=== PATIENT | female | born 1935 | race Caucasian/White ===

== ENCOUNTER 2018-10-25 11:27 | Inpatient (IN) | payer OTHER, BC ==
[2018-10-25] MEDS ORDERED: VANCOMYCIN 1,000 MG in DEXTROSE 5%-WATER - 250 ML IVPB ONE (11:51)
[2018-10-25] MEDS ORDERED: VANCOMYCIN 1 GRAM (PRE-DOCKED) 1,000 MG/250 ML BAG IVPB ONE (12:45)
[2018-10-25 12:47] LABS: BASO % 1.4 % (0-2.0); EOS % 2.3 % (0-4.5); HEMATOCRIT 39.5 % (32.4-45.2); LYMPH % 12.6 % (8-40); MCH 28.6 pg (25.7-33.7); MEAN CELL VOLUME 86.8 fl (80-96); MEAN PLT VOLUME 9.3 fl (7.5-11.1); MONO % 6.7 % (3.8-10.2); PLATELET COUNT 238 K/MM3 (134-434); RBC 4.55 M/mm3 (3.60-5.2); RDW 14.7 % (11.6-15.6)
--- NOTE | 2018-10-25 13:10 | PDOC ---
Documentation entered by Vicki Palomino SCRIBE, acting as scribe for Kody Kaplan MD. Kody Kaplan MD: This documentation has been prepared by the scribe, Vicki Palomino SCRIBE, under my direction and personally reviewed by me in its entirety. I confirm that the documentation accurately reflects all work, treatment, procedures, and medical decision making performed by me. History of Present Illness - General Chief Complaint: Wound Stated Complaint: EDEMA Time Seen by Provider: 10/25/18 11:42 History Source: Patient Exam Limitations: No Limitations - History of Present Illness Initial Comments: 10/25/18 12:47 The patient is an 83-year-old female with a past medical history significant for HLD (on Lipitor) presents to the emergency department with bilateral foot wounds for the past 4 days. The patient reports she recently returned from [facility] 4 days ago. While in [facility], there was a 48 hour period where she wore the same shoes and socks. Afterwards, she developed a blister to the foot, which progressed into wounds to the pinky toe b/l, the R medial great toe, and the L heal. SHe reports the wounds developed about 1 week ago. While in [place], she developed fever and chills. The patient reports she was seen at the [place] ER, where she was prescribed Clindamycin. The patient reports improvement to fever and chills, with some decrease in swelling swelling but persistent redness. Denies significant pain to the wounds. Denies hx DM. The patient states she was seen at Dr. Reid office, from where she was referred to the ER for IV antibiotics. Denies fever, chills, leg pain, shortness of breath, or chest pain. Denies injury or trauma. As per Dr. Godfrey, he is concerned about failure of clindamycin and requests IV abx. Allergies: Penicillins PCP: Dr. Hanna. Past History - Past Medical History Allergies/Adverse Reactions: Allergies Allergy/AdvReac Type Severity Reaction Status Date / Time Penicillins Allergy Verified 10/25/18 11:30 Home Medications: Ambulatory Orders Atorvastatin Ca [Lipitor] 10 mg PO Q72H 10/25/18 Clindamycin [Cleocin -] 600 mg PO TID 10/25/18 COPD: No Hypercholesterolemia: Yes - Suicide/Smoking/Psychosocial Hx Smoking History: Former smoker Have you smoked in the past 12 months: No If you are a former smoker, when did you quit?: 20 yrs ago Information on smoking cessation initiated: No Review of Systems - Review of Systems Able to Perform ROS?: Yes Comments:: 10/25/18 12:40 GENERAL/CONSTITUTIONAL: No fever or chills. No weakness. HEAD, EYES, EARS, NOSE AND THROAT: No change in vision. No ear pain or discharge. No sore throat. GASTROINTESTINAL: No nausea, vomiting, diarrhea or constipation. GENITOURINARY: No dysuria, frequency, or change in urination. CARDIOVASCULAR: No chest pain or shortness of breath. RESPIRATORY: No cough, wheezing, or hemoptysis. MUSCULOSKELETAL: Denies leg pain. No joint or muscle swelling or pain. No neck or back pain. SKIN: +wound to the R and L. pinky toes. +left heel wound. +wound to the sole of the right great toe. No rash. NEUROLOGIC: No headache, vertigo, loss of consciousness, or change in strength/ sensation. ENDOCRINE: No increased thirst. No abnormal weight change. HEMATOLOGIC/LYMPHATIC: No anemia, easy bleeding, or history of blood clots. ALLERGIC/IMMUNOLOGIC: No hives or skin allergy. *Physical Exam - Vital Signs Last Vital Signs Temp Pulse Resp BP Pulse Ox 98 F 98 H 18 138/74 94 L 10/25/18 11:33 10/25/18 11:33 10/25/18 11:33 10/25/18 11:33 10/25/18 11:33 - Physical Exam Comments: 10/25/18 12:40 GENERAL: Awake, alert, and fully oriented, in no acute distress. Very pleasant. EYES: EOMI, sclera anicteric, conjunctiva clear ENT: Oropharynx clear without exudates. Moist mucosa LUNGS: Breath sounds equal, clear to auscultation bilaterally. No wheezes, and no crackles HEART: Regular rate and rhythm, normal S1 and S2, no murmurs, rubs or gallops ABDOMEN: Soft, nontender, normoactive bowel sounds. No guarding, no rebound. No masses EXTREMITIES: Normal range of motion, no edema. No cord or tenderness NEUROLOGICAL: Normal speech, cranial nerves intact, equals strength and sensation b/l SKIN: L heel with 3x4cm ulcer with surrounding erythema, L medial 5th toe with 2x1cm ulcer, R medial 1st toe 5x5cm ulcer with surrounding erythema, R medial 5th toe 2x1cm ulcer. Dorsum of the foot with erythema and mild induration extending to distal storey ED Treatment Course - LABORATORY CBC & Chemistry Diagram: 10/25/18 12:25 10/25/18 12:25 - ADDITIONAL ORDERS Additional order review: 10/25/18 12:25 RBC 4.55 MCV 86.8 MCHC 33.0 RDW 14.7 MPV 9.3 Neutrophils % 77.0 Lymphocytes % 12.6 Monocytes % 6.7 Eosinophils % 2.3 Basophils % 1.4 - RADIOLOGY Radiology Studies Ordered: Category Date Time Status CHEST X-RAY PORTABLE* [RAD] Stat Radiology 10/25/18 11:45 Completed FOOT-LEFT [RAD] Stat Radiology 10/25/18 12:13 Ordered FOOT-RIGHT [RAD] Stat Radiology 10/25/18 12:13 Ordered DUPLEX VASCUL US-2LEGS [US] Stat Ultrasound 10/25/18 12:13 Ordered - Medications Given in the ED: ED Medications Discontinued Medications Generic Name Dose Route Start Last Admin Trade Name Freq PRN Reason Stop Dose Admin Vancomycin HCl 1,000 mg/ 250 mls @ 250 mls/hr 10/25/18 11:51 10/25/18 12:53 Dextrose IVPB 10/25/18 12:50 250 mls/hr ONCE ONE Administration Protocol Medical Decision Making - Medical Decision Making 10/25/18 13:07 83yo F hx HL presents to the ED for IV abx after persistent erythema and wounds despite PO clindamycin Plan for labs, blood cx, XR, US to eval for DVT. Consult for ID placed, awaiting call back Anticipate admission 10/25/18 13:20 Dr. Ramirez at the bedside, case discussed WIll await her recs 10/25/18 13:[address] Ramirez, will add levoquin 500mg for antipseudomonal, gram neg cvg Pt has no hx cardiac disease or aortic pathology and has anaphylactic reaction to penicillins ("body swells up") so levaquin is most reasonable option Awaiting X-ray/US, then will admit 10/25/18 16:02 XRay neg for osteo on my read US neg DVT No leukocytosis Case signed out to Dr. Cee, pt accepted for admission Case discussed in detail with admitting physician including history, physical exam and ancillary studies. Admitting physician has assumed care for the patient, will follow all pending diagnostics and will complete the evaluation and treatment. *DC/Admit/Observation/Transfer Diagnosis at time of Disposition: Cellulitis Qualifiers: Site of cellulitis of extremity: lower extremity Laterality: right - Discharge Dispostion Condition at time of disposition: Stable Decision to Admit order Date/Time: Decision to Admit Order Category Date Time Status Decision to Admit to Hospital Routine Admission 10/25/18 12:12 Active - Referrals - Patient Instructions - Post Discharge Activity - Attestations Physician Attestion: 10/25/18 16:03 I, Dr. Kody Kaplan MD, attest that this document has been prepared under my direction and personally reviewed by me in its entirety. I further attest, that it accurately reflects all work, treatment, procedures and medical decision -making performed by me.
[2018-10-25 13:40] LABS: ALBUMIN 3.2 g/dl (3.4-5.0); BILIRUBIN,TOTAL 0.5 mg/dL (0.2-1); CALCIUM 9.3 mg/dL (8.5-10.1); CREATININE 0.7 mg/dL (0.55-1.3); POTASSIUM 5.1 mmol/L (3.5-5.1); TOT PROT 6.7 g/dl (6.4-8.2)
--- NOTE | 2018-10-25 14:22 | CON.ID ---
Consult Consult Specialty:: infectious disease Referred by:: dr mata Reason for Consultation:: cellulitis of right foot, ?abscess - History of Present Illness Chief Complaint: fuentes and swelling and erythema of the feet History of Present Illness: otherwise healthy 83 yo female went to [place] approximately 2 weeks ago with family to gaile- she wore sneakers and did a lot of walking the first several days she delivered blisters which she popped (2) with a clean sewing needle- she applied acitracin, more blisters appeared and the feet became red and swollen- her daughter moi she was running a fever and took her to the ER in [place] on Monday where she was prescribed clindamycin 600 mg bid which she took until today she cut her trip short and [place] she saw her PMD on Monday who referred her to podiatrytoday who sent her to ED for admissions no longer feverish feels fine except for the feet pen allergy - she blows up has not been hospitalized since the of her son over 50 years ago no recent antibiotics other then the clindamycin - History Source History Provided By: Patient Limitations to Obtaining History: No Limitations - Past Medical History Cardio/Vascular: Yes: Hyperlipdemia - Past Surgical History Additional Surgical History: ruptured ovarian cyst - Alcohol/Substance Use Hx Alcohol Use: No History of Substance Use: reports: None - Smoking History Smoking history: Former smoker Have you smoked in the past 12 months: No If you are a former smoker, when did you quit?: 20 yrs ago - Social History Usual Living Arrangement: Alone ADL: Independent Occupation: retired schoolteacher/ professor Place of : [facility] Home Medications - Allergies Allergies/Adverse Reactions: Allergies Allergy/AdvReac Type Severity Reaction Status Date / Time Penicillins Allergy Verified 10/25/18 11:30 - Home Medications Home Medications: Ambulatory Orders Atorvastatin Ca [Lipitor] 10 mg PO Q72H 10/25/18 Clindamycin [Cleocin -] 600 mg PO TID 10/25/18 Family Disease History - Family Disease History Family History: Denies Review of Systems - Review of Systems Constitutional: reports: No Symptoms. denies: Chills, Diaphoresis, Fever, Lethargy Eyes: reports: No Symptoms HENT: reports: No Symptoms Neck: reports: No Symptoms Cardiovascular: reports: No Symptoms Respiratory: reports: No Symptoms Gastrointestinal: reports: No Symptoms Genitourinary: reports: No Symptoms Physical Exam Vital Signs: Vital Signs Temperature 98 F 10/25/18 11:33 Pulse Rate 98 H 10/25/18 11:33 Respiratory Rate 18 10/25/18 11:33 Blood Pressure 138/74 10/25/18 11:33 O2 Sat by Pulse Oximetry (%) 94 L 10/25/18 11:33 Constitutional: Yes: Well Nourished, No Distress, Calm Eyes: Yes: Conjunctiva Clear, EOM Intact HENT: Yes: Atraumatic, Normocephalic. No: Thrush, Tonsillar Exudate Neck: Yes: Supple, Trachea Midline Cardiovascular: Yes: Regular Rate and Rhythm Respiratory: Yes: Regular, CTA Bilaterally Gastrointestinal: Yes: Normal Bowel Sounds, Soft ...Rectal Exam: Yes: Deferred Extremities: Yes: Other (right foot erythema with ulcer/?abscess below right big toe, +ulcer right 5th toe, left heel ulcer left fifth toe ulcer. no drainage , +white inside the blister right big tie- ?abscess) Edema: Yes Edema: LLE: Trace, RLE: Trace Peripheral Pulses WNL: Yes Neurological: Yes: Alert, Oriented Psychiatric: Yes: Alert, Oriented Labs: CBC, BMP 10/25/18 12:25 10/25/18 12:25 Imaging - Results X-ray: Report Reviewed, Image Reviewed (no infiltrate) Problem List - Problems (1) Cellulitis Code(s): L03.90 - CELLULITIS, UNSPECIFIED Qualifiers: Site of cellulitis of extremity: lower extremity Laterality: right (2) Penicillin allergy Code(s): Z88.0 - ALLERGY STATUS TO PENICILLIN Assessment/Plan no real response to clindamycin no drainage to culture severe pen allergy blood cultures sent vancomycin/levaquin podiatry to evaluate need for debridement esr/crp may need MRI will await xrays first
[2018-10-25] MEDS ORDERED: ACETAMINOPHEN 325 MG TABLET (FP) PO PRN (16:55)
--- NOTE | 2018-10-25 16:58 | HP ---
Admitting History and Physical - Primary Care Physician PCP: Vazquez Hanna - Admission Chief Complaint: my feet History of Present Illness: Ms Thompson is a very pleasant 83 year old female who comes in with cellulitis that failed outpatient therapy. She was vacationing in [place] and walked approximately 20 miles in 3 days. She noted that she developed blisters on both her feet. She popped the blisters with a needle from a sewing kit but continued to walk after this, and she also wore the same socks and shoes as well. Her feet became very red and swollen and she developed fevers and chills with shaking. She went to an ER in [facility] where she received clindamycin, however she decided to [place]. She has been taking the clindamycin but notes her feet are still beet red and swollen. She was seen by the structural iron erector and sent for admission. Currently she says she feels well aside from her feet hurting when she walks. She denies current fevers, chills, rigors, lightheadedness, dizziness, chest pain or pressure, shortness of breath , coughing, nausea, vomiting, anorexia, diarrhea, constipation, or difficulty or pain on urination. History Source: Patient Limitations to Obtaining History: No Limitations - Past Medical History Cardiovascular: Yes: Hyperlipdemia - Past Surgical History Past Surgical History: Yes: Oopherectomy - Smoking History Smoking history: Former smoker Have you smoked in the past 12 months: No If you are a former smoker, when did you quit?: 20 yrs ago - Alcohol/Substance Use Hx Alcohol Use: No History of Substance Use: reports: None - Social History ADL: Independent Occupation: retired schoolteacher/ professor History of Recent Travel: Yes ([facility]) Home Medications - Allergies Allergies/Adverse Reactions: Allergies Allergy/AdvReac Type Severity Reaction Status Date / Time Penicillins Allergy Verified 10/25/18 11:30 - Home Medications Home Medications: Ambulatory Orders Atorvastatin Ca [Lipitor] 10 mg PO Q72H 10/25/18 Clindamycin [Cleocin -] 600 mg PO TID 10/25/18 Family Disease History - Family Disease History Family Disease History: Other: Father (Parkinsons), Mother ( at age 103) Review of Systems Findings/Remarks: full review of systems obtained, as per HPI and otherwise negative Physical Examination Vital Signs: Vital Signs Temperature 36.6 C 10/25/18 11:33 Pulse Rate 98 H 10/25/18 11:33 Respiratory Rate 18 10/25/18 11:33 Blood Pressure 138/74 10/25/18 11:33 O2 Sat by Pulse Oximetry (%) 94 L 10/25/18 11:33 Constitutional: Yes: Well Nourished, No Distress, Calm Eyes: Yes: Conjunctiva Clear, EOM Intact, PERRL HENT: Yes: Atraumatic, Normocephalic Cardiovascular: Yes: Regular Rate and Rhythm. No: Gallop, Murmur, Rub Respiratory: Yes: Regular, CTA Bilaterally. No: Rales, Rhonchi, Wheezes Gastrointestinal: Yes: Normal Bowel Sounds, Soft. No: Distention, Tenderness Extremities: Yes: Erythema, Other (multiple blisters) Edema: Yes Edema: LLE: Trace, RLE: Trace Labs: CBC, BMP 10/25/18 12:25 10/25/18 12:25 Imaging - Results Chest X-ray: Report Reviewed, Image Reviewed X-ray: Image Reviewed Problem List - Problems (1) Cellulitis Assessment/Plan: -failed outpatient therapy -currently no signs of sepsis but needs IV antibiotics -admit to med/surg -podiatry consulted -case d/w Dr Ramirez -start levaquin and vancomycin -monitor for improvement -check ESR and CRP -awaiting final read for foot x-rays Code(s): L03.90 - CELLULITIS, UNSPECIFIED Qualifiers: Site of cellulitis of extremity: lower extremity Laterality: right (2) HLD (hyperlipidemia) Assessment/Plan: -continue atorvastatin 10mg three times a week Code(s): E78.5 - HYPERLIPIDEMIA, UNSPECIFIED
[2018-10-25 18:35] VITALS: BMI 25.8
[2018-10-25] MEDS: ATORVASTATIN CA 10 MG TABLET (FP) PO SCH (22:44)
[2018-10-26 07:35] LABS: BASO % 1.5 % (0-2.0); EOS % 3.5 % (0-4.5); HEMATOCRIT 37.5 % (32.4-45.2); HEMOGLOBIN 12.2 GM/dL (10.7-15.3); LYMPH % 16.8 % (8-40); MCH 28.3 pg (25.7-33.7); MCHC 32.6 g/dl (32.0-36.0); MEAN CELL VOLUME 86.8 fl (80-96); MEAN PLT VOLUME 8.6 fl (7.5-11.1); MONO % 7.1 % (3.8-10.2); NEUT % 71.1 % (42.8-82.8); PLATELET COUNT 236 K/MM3 (134-434); RBC 4.32 M/mm3 (3.60-5.2); RDW 14.4 % (11.6-15.6); WHITE BLOOD COUNT 6.2 K/mm3 (4.0-10.0)
[2018-10-26 07:46] LABS: CALCIUM 8.5 mg/dL (8.5-10.1); CREATININE 0.7 mg/dL (0.55-1.3); MAGNESIUM 2.5 mg/dL (1.8-2.4); PHOSPHOROUS 3.6 mg/dL (2.5-4.9); POTASSIUM 4.5 mmol/L (3.5-5.1)
[2018-10-26] MEDS: LACTOBACILLUS ACIDOPHILUS 1 TABLET PO SCH (09:51)
[2018-10-26] MEDS: ENOXAPARIN NA (PORCINE) 40 MG/0.4 ML DISP.SYRIN SQ SCH (09:51)
[2018-10-26 10:51] LABS: ANISOCYTOSIS 0; MACROCYTOSIS 0; PLATELET ESTIMATE NORMAL
[2018-10-26] MEDS: VANCOMYCIN 1 GRAM (PRE-DOCKED) 1,000 MG/250 ML BAG IVPB SCH (12:09)
--- NOTE | 2018-10-26 13:37 | CONSULT ---
Consult Consult Specialty:: Podiatry Reason for Consultation:: Patient has an infected right foot 1-2 weeks Started in [place]. - History of Present Illness Chief Complaint: Infected right foot. History of Present Illness: Infected right foot 1-2 weeks duration. - Past Medical History Cardio/Vascular: Yes: Hyperlipdemia - Past Surgical History Past Surgical History: Yes: Oopherectomy Additional Surgical History: ruptured ovarian cyst - Alcohol/Substance Use Hx Alcohol Use: No History of Substance Use: reports: None - Smoking History Smoking history: Former smoker Have you smoked in the past 12 months: No If you are a former smoker, when did you quit?: 20 yrs ago - Social History Usual Living Arrangement: Alone ADL: Independent Occupation: retired schoolteacher/ professor History of Recent Travel: Yes ([facility]) Home Medications - Allergies Allergies/Adverse Reactions: Allergies Allergy/AdvReac Type Severity Reaction Status Date / Time Penicillins Allergy Verified 10/25/18 11:30 - Home Medications Home Medications: Ambulatory Orders Atorvastatin Ca [Lipitor] 10 mg PO Q72H 10/25/18 Clindamycin [Cleocin -] 600 mg PO TID 10/25/18 Family Disease History - Family Disease History Family Disease History: Other: Father (Parkinsons), Mother ( at age 103) Physical Exam Vital Signs: Vital Signs Temperature 98.2 F 10/26/18 09:45 Pulse Rate 73 10/26/18 09:45 Respiratory Rate 18 10/26/18 09:45 Blood Pressure 125/70 10/26/18 09:45 O2 Sat by Pulse Oximetry (%) 96 10/25/18 21:00 Extremities: Yes: Other (+cellulitis, +wound big toe joint and 5th toe joint, - drainage, -mal odor) Labs: CBC, BMP 10/26/18 06:32 10/26/18 06:32 Imaging - Results X-ray: Report Reviewed Assessment/Plan cellulitis r/o om IVABX as per ID. Echeverria to wounds. Vascular consult. Will follow.
[2018-10-26] MEDS: COLLAGENASE CLOSTRIDIUM HIST. 30 GRAMS TUBE TP SCH (14:37)
--- NOTE | 2018-10-26 14:41 | PN ---
Progress Note (short form) - Note Progress Note: feet just dressed- she doesn't want me to remove it reports erythema about the same no drainage Vital Signs Period Temp Pulse Resp BP Sys/Field Pulse Ox Last 24 Hr 97.3 F-98.2 F 70-84 18-77 124-142/70-77 95-96 both feet are bandaged CBC, BMP 10/26/18 06:32 10/26/18 06:32 Laboratory Tests 10/25/18 10/25/18 20:30 20:30 ESR 38 H C-Reactive Protein 1.9 H Microbiology 10/25/18 12:25 Blood - Peripheral Venous Blood Culture - Preliminary NO GROWTH OBTAINED AFTER 24 HOURS, INCUBATION TO CONTINUE FOR 4 DAYS. 10/25/18 12:25 Blood - Peripheral Venous Blood Culture - Preliminary NO GROWTH OBTAINED AFTER 24 HOURS, INCUBATION TO CONTINUE FOR 4 DAYS. Active Medications Acetaminophen (Tylenol -) 650 mg PO Q4H PRN PRN Reason: FEVER Atorvastatin Calcium (Lipitor -) 10 mg PO Q72H BHARAT Last Admin: 10/25/18 22:44 Dose: Not Given Collagenase (Santyl -) 1 applic TP DAILY BHARAT; Protocol Last Admin: 10/26/18 14:37 Dose: 1 applic Enoxaparin Sodium (Lovenox -) 40 mg SQ DAILY BHARAT Last Admin: 10/26/18 09:51 Dose: 40 mg Vancomycin HCl (Vancomycin (Pre-Docked)) 1,000 mg in 250 mls @ 200 mls/hr IVPB Q24H BHARAT; Protocol Last Admin: 10/26/18 12:09 Dose: 200 mls/hr Levofloxacin (Levaquin 500 Mg Premixed Ivpb -) 500 mg in 100 mls @ 100 mls/hr IVPB DAILY BHARAT; Protocol Last Admin: 10/26/18 09:51 Dose: 100 mls/hr Lactobacillus Acidophilus (Bacid -) 1 tab PO DAILY BHARAT Last Admin: 10/26/18 09:51 Dose: 1 tab a/p bilateral cellulitis pen allergy (major) continue vancomycin and levaquin will examine feet in am MRI ordered Problem List - Problems (1) Cellulitis Code(s): L03.90 - CELLULITIS, UNSPECIFIED Qualifiers: Site of cellulitis of extremity: lower extremity Laterality: right (2) Penicillin allergy Code(s): Z88.0 - ALLERGY STATUS TO PENICILLIN
--- NOTE | 2018-10-26 17:22 | CONSULT ---
- Consultation REQUESTING PROVIDER: CONSULT REQUEST: We have been asked to surgically evaluate this patient for (b/ l foot cellulitis/wounds). PCP:Sylvester Cee MD HISTORY OF PRESENT ILLNESS: 83 y/o F w/ PMHx hld a/w foot cellulitis. Pt reports she was vacationing in [place] a week ago and walked approximately 20 miles in 3 days wearing Sketchers. States after the third day she noted a blister on her foot which she popped with her sewing needle and applied Bacitracin. The following day the pt noted multiple blisters on b/l feet in addition to redness/swelling and pain. Endorses chills/fevers. Pt was seen at an ER in [place] on 10/21 where she was given a prescription for Clindamycin 300mg TID and discharged. Pt reports vacation was cut short and they returned on Monday evening. Was seen by her PCP on Monday and urged to go to the ER. Pt refused, PCP allowed 24 hours to assess for any change. Feet remained unchanged in addition to persistent chills and pt was sent to the hospital for further evaluation. Denies any prior h/o cellulitis, DM, foot trauma, DVT/PE. Pt reports she was a heavy smoker (3ppd) for many years, however quit approx 20 years ago. Has never had evaluation/intervention w/ vascular surgery. At baseline pt ambulates unlimited miles without assistance, denies any h/o claudication. Denies cp/sob, n/v/d, calf pain/edema. PMHx: as above PSHx: oophorectomy Home Medications Medication Instructions Recorded Atorvastatin Ca [Lipitor] 10 mg PO Q72H 10/25/18 Clindamycin [Cleocin -] 600 mg PO TID 10/25/18 Allergies Allergy/AdvReac Type Severity Reaction Status Date / Time Penicillins Allergy Verified 10/25/18 11:30 REVIEW OF SYSTEMS: CONSTITUTIONAL: +subjective fever, chills CARDIOVASCULAR: Absent: chest pain, syncope RESPIRATORY: Absent: cough, shortness of breath GASTROINTESTINAL: Absent: abdominal pain GENITOURINARY: Absent: dysuria PHYSICAL EXAM: GENERAL: Awake, alert, and fully oriented, in no acute distress. HEAD: Normal with no signs of trauma. LOWER EXTREMITIES: B/l feet with multiple dried blisters: Left foot with dried blister at medial aspect of 5th toe, heel with approx 2x2cm area of denuded/ dried blister. No erythema or drainage from either denuded blisters. Forefoot with slight hyperemia/trace edema. Right foot with approx 3x3cm denuded/dried blister over 1st met head, small denuded/dried blister over 5th toe. Right foot with 1+ pitting edema to ankle, erythema over forefoot extending from met heads to proximal foot. Vasc: 2+ b/l dp, 1+ b/l pt Vital Signs Temperature 98.5 F 10/26/18 14:47 Pulse Rate 83 10/26/18 14:47 Respiratory Rate 18 10/26/18 14:47 Blood Pressure 148/86 10/26/18 14:47 O2 Sat by Pulse Oximetry (%) 96 10/25/18 21:00 Lab Results WBC 6.2 K/mm3 (4.0-10.0) 10/26/18 06:32 RBC 4.32 M/mm3 (3.60-5.2) 10/26/18 06:32 Hgb 12.2 GM/dL (10.7-15.3) 10/26/18 06:32 Hct 37.5 % (32.4-45.2) 10/26/18 06:32 MCV 86.8 fl (80-96) 10/26/18 06:32 MCHC 32.6 g/dl (32.0-36.0) 10/26/18 06:32 RDW 14.4 % (11.6-15.6) 10/26/18 06:32 Plt Count 236 K/MM3 (134-434) 10/26/18 06:32 Sodium 143 mmol/L (136-145) 10/26/18 06:32 Potassium 4.5 mmol/L (3.5-5.1) 10/26/18 06:32 Chloride 110 mmol/L (98-107) H 10/26/18 06:32 Carbon Dioxide 25 mmol/L (21-32) 10/26/18 06:32 Anion Gap 7 MMOL/L (8-16) L 10/26/18 06:32 BUN 14 mg/dL (7-18) 10/26/18 06:32 Creatinine 0.7 mg/dL (0.55-1.3) 10/26/18 06:32 Random Glucose 104 mg/dL (74-106) 10/26/18 06:32 Calcium 8.5 mg/dL (8.5-10.1) 10/26/18 06:32 A/P: 83 y/o F w/ PMHx hld a/w foot cellulitis. Pt with right foot cellulitis, multiple denuded/dried blisters over b/l feet. no purulent drainage from any of the areas noted. Afebrile, no leukocytosis. Prelim blood cultures negative. Palpable pedal pulses -No acute vascular surgery intervention at this time. -Local wound care with betadine solution to denuded blisters -Abx per primary team -B/L foot elevation while at rest -D/w pt at length foot care, avoidance of walking barefoot,checking feet daily for any injuries, etc. Pt verbalized understanding above d/w attending Dr Correa
--- NOTE | 2018-10-26 17:30 | PN ---
Progress Note, Physician Chief Complaint: Ms Thompson says she is feeling better today, it is easier to walk. Denies cp, sob, n/v. - Current Medication List Current Medications: Active Medications Acetaminophen (Tylenol -) 650 mg PO Q4H PRN PRN Reason: FEVER Atorvastatin Calcium (Lipitor -) 10 mg PO Q72H [facility] Last Admin: 10/25/18 22:44 Dose: Not Given Collagenase (Santyl -) 1 applic TP DAILY [facility]; Protocol Last Admin: 10/26/18 14:37 Dose: 1 applic Enoxaparin Sodium (Lovenox -) 40 mg SQ DAILY [facility] Last Admin: 10/26/18 09:51 Dose: 40 mg Vancomycin HCl (Vancomycin (Pre-Docked)) 1,000 mg in 250 mls @ 200 mls/hr IVPB Q24H [facility]; Protocol Last Admin: 10/26/18 12:09 Dose: 200 mls/hr Levofloxacin (Levaquin 500 Mg Premixed Ivpb -) 500 mg in 100 mls @ 100 mls/hr IVPB DAILY [facility]; Protocol Last Admin: 10/26/18 09:51 Dose: 100 mls/hr Lactobacillus Acidophilus (Bacid -) 1 tab PO DAILY [facility] Last Admin: 10/26/18 09:51 Dose: 1 tab - Objective Vital Signs: Vital Signs Temperature 36.9 C 10/26/18 14:47 Pulse Rate 83 10/26/18 14:47 Respiratory Rate 18 10/26/18 14:47 Blood Pressure 148/86 10/26/18 14:47 O2 Sat by Pulse Oximetry (%) 96 10/25/18 21:00 Constitutional: Yes: Well Nourished, No Distress, Calm Cardiovascular: Yes: Regular Rate and Rhythm. No: Gallop, Murmur, Rub Respiratory: Yes: Regular, CTA Bilaterally. No: Rales, Rhonchi, Wheezes Gastrointestinal: Yes: Normal Bowel Sounds, Soft. No: Distention, Tenderness Extremities: Yes: Other (wrapped) Labs: CBC, BMP 10/26/18 06:32 10/26/18 06:32 Problem List - Problems (1) Cellulitis Code(s): L03.90 - CELLULITIS, UNSPECIFIED Qualifiers: Qualified Code(s): L03.115 - Cellulitis of right lower limb (2) HLD (hyperlipidemia) Code(s): E78.5 - HYPERLIPIDEMIA, UNSPECIFIED Assessment/Plan (1) Cellulitis Assessment/Plan: -continue IV vancomycin and levaquin -ID following -continue lactobacillus -will unwrap feet in am to view if improving Code(s): L03.90 - CELLULITIS, UNSPECIFIED Qualifiers: Site of cellulitis of extremity: lower extremity Laterality: right (2) HLD (hyperlipidemia) Assessment/Plan: -continue atorvastatin 10mg three times a week Code(s): E78.5 - HYPERLIPIDEMIA, UNSPECIFIED
[2018-10-27 07:21] LABS: EOS % 3.4 % (0-4.5); HEMATOCRIT 39.2 % (32.4-45.2); LYMPH % 17.9 % (8-40); MCH 28.7 pg (25.7-33.7); MCHC 33.1 g/dl (32.0-36.0); MEAN CELL VOLUME 86.5 fl (80-96); MEAN PLT VOLUME 8.3 fl (7.5-11.1); MONO % 7.7 % (3.8-10.2); PLATELET COUNT 266 K/MM3 (134-434); RBC 4.53 M/mm3 (3.60-5.2); RDW 14.5 % (11.6-15.6); WHITE BLOOD COUNT 7.3 K/mm3 (4.0-10.0)
[2018-10-27 07:41] LABS: CALCIUM 9.1 mg/dL (8.5-10.1); CREATININE 0.7 mg/dL (0.55-1.3); MAGNESIUM 2.3 mg/dL (1.8-2.4); PHOSPHOROUS 3.8 mg/dL (2.5-4.9); POTASSIUM 4.2 mmol/L (3.5-5.1)
[2018-10-27] MEDS: ENOXAPARIN NA (PORCINE) 40 MG/0.4 ML DISP.SYRIN SQ SCH (09:39)
[2018-10-27] MEDS: LACTOBACILLUS ACIDOPHILUS 1 TABLET PO SCH (09:39)
[2018-10-27] MEDS: COLLAGENASE CLOSTRIDIUM HIST. 30 GRAMS TUBE TP SCH (09:40)
--- NOTE | 2018-10-27 11:41 | PN ---
Progress Note (short form) - Note Progress Note: no complaints Vital Signs Period Temp Pulse Resp BP Sys/Field Pulse Ox Last 24 Hr 98.1 F-98.5 F 72-83 18-18 133-157/67-105 99 cor-rrr lungs clear abd soft,nt ext much less erythema of the right foot- shallow ulcer along the right first big toe CBC, BMP 10/27/18 06:21 10/27/18 06:21 mri left foot no osteo a/p bilateral cellulitis pen allergy (major) continue vancomycin and levaquin will examine feet in am MRI ordered of right foot check [facility] today Problem List - Problems (1) Cellulitis Code(s): L03.90 - CELLULITIS, UNSPECIFIED Qualifiers: Site of cellulitis of extremity: lower extremity Laterality: right (2) Penicillin allergy Code(s): Z88.0 - ALLERGY STATUS TO PENICILLIN
[2018-10-27 12:43] LABS: ANISOCYTOSIS 0; MACROCYTOSIS 0; PLATELET ESTIMATE NORMAL
[2018-10-27] MEDS: VANCOMYCIN 1 GRAM (PRE-DOCKED) 1,000 MG/250 ML BAG IVPB SCH (12:59)
--- NOTE | 2018-10-27 13:14 | PN ---
Progress Note, Physician Chief Complaint: Ms Thompson is without complaint. Denies cp, sob, n/v. Pain in feet resolved. - Current Medication List Current Medications: Active Medications Acetaminophen (Tylenol -) 650 mg PO Q4H PRN PRN Reason: FEVER Atorvastatin Calcium (Lipitor -) 10 mg PO Q72H [facility] Last Admin: 10/25/18 22:44 Dose: Not Given Collagenase (Santyl -) 1 applic TP DAILY [facility]; Protocol Last Admin: 10/27/18 09:40 Dose: 1 applic Enoxaparin Sodium (Lovenox -) 40 mg SQ DAILY [facility] Last Admin: 10/27/18 09:39 Dose: 40 mg Vancomycin HCl (Vancomycin (Pre-Docked)) 1,000 mg in 250 mls @ 200 mls/hr IVPB Q24H [facility]; Protocol Last Admin: 10/27/18 12:59 Dose: 200 mls/hr Levofloxacin (Levaquin 500 Mg Premixed Ivpb -) 500 mg in 100 mls @ 100 mls/hr IVPB DAILY [facility]; Protocol Last Admin: 10/27/18 09:39 Dose: 100 mls/hr Lactobacillus Acidophilus (Bacid -) 1 tab PO DAILY [facility] Last Admin: 10/27/18 09:39 Dose: 1 tab - Objective Vital Signs: Vital Signs Temperature 36.7 C 10/27/18 12:00 Pulse Rate 70 10/27/18 12:00 Respiratory Rate 16 10/27/18 12:00 Blood Pressure 124/78 10/27/18 12:00 O2 Sat by Pulse Oximetry (%) 99 10/26/18 21:00 Constitutional: Yes: Well Nourished, No Distress, Calm Cardiovascular: Yes: Regular Rate and Rhythm. No: Gallop, Murmur, Rub Respiratory: Yes: Regular, CTA Bilaterally. No: Rales, Rhonchi, Wheezes Gastrointestinal: Yes: Normal Bowel Sounds, Soft. No: Distention, Tenderness Extremities: Yes: Erythema (R foot, much improved. Almost resolved on L foot with friction ulcer on L heel) Edema: No Labs: CBC, BMP 10/27/18 06:21 10/27/18 06:21 Problem List - Problems (1) Cellulitis Code(s): L03.90 - CELLULITIS, UNSPECIFIED Qualifiers: Site of cellulitis of extremity: lower extremity Laterality: right (2) HLD (hyperlipidemia) Code(s): E78.5 - HYPERLIPIDEMIA, UNSPECIFIED Assessment/Plan (1) Cellulitis Assessment/Plan: -cellulitis much improved -case d/w Dr Ramirez -continue levaquin and vancomycin -MRI R foot pending Code(s): L03.90 - CELLULITIS, UNSPECIFIED Qualifiers: Site of cellulitis of extremity: lower extremity Laterality: right (2) HLD (hyperlipidemia) Assessment/Plan: -continue atorvastatin 10mg three times a week Code(s): E78.5 - HYPERLIPIDEMIA, UNSPECIFIED
[2018-10-28 07:52] LABS: BASO % 1.3 % (0-2.0); EOS % 3.7 % (0-4.5); HEMATOCRIT 39.1 % (32.4-45.2); LYMPH % 16.1 % (8-40); MCH 28.5 pg (25.7-33.7); MCHC 33.2 g/dl (32.0-36.0); MEAN CELL VOLUME 85.9 fl (80-96); MEAN PLT VOLUME 8.2 fl (7.5-11.1); MONO % 6.6 % (3.8-10.2); NEUT % 72.3 % (42.8-82.8); PLATELET COUNT 277 K/MM3 (134-434); RBC 4.55 M/mm3 (3.60-5.2); RDW 14.6 % (11.6-15.6); WHITE BLOOD COUNT 7.6 K/mm3 (4.0-10.0)
[2018-10-28 08:30] LABS: CALCIUM 8.8 mg/dL (8.5-10.1); CREATININE 0.6 mg/dL (0.55-1.3); MAGNESIUM 2.4 mg/dL (1.8-2.4); PHOSPHOROUS 3.4 mg/dL (2.5-4.9); POTASSIUM 4.4 mmol/L (3.5-5.1)
[2018-10-28] MEDS: LACTOBACILLUS ACIDOPHILUS 1 TABLET PO SCH (09:04)
[2018-10-28] MEDS: ENOXAPARIN NA (PORCINE) 40 MG/0.4 ML DISP.SYRIN SQ SCH (09:08)
--- NOTE | 2018-10-28 10:51 | PN ---
Progress Note, Physician History of Present Illness: FUV b/l feet multiple wounds. - Current Medication List Current Medications: Active Medications Acetaminophen (Tylenol -) 650 mg PO Q4H PRN PRN Reason: FEVER Atorvastatin Calcium (Lipitor -) 10 mg PO Q72H [facility] Last Admin: 10/25/18 22:44 Dose: Not Given Collagenase (Santyl -) 1 applic TP DAILY [facility]; Protocol Last Admin: 10/27/18 09:40 Dose: 1 applic Enoxaparin Sodium (Lovenox -) 40 mg SQ DAILY [facility] Last Admin: 10/28/18 09:08 Dose: Not Given Vancomycin HCl (Vancomycin (Pre-Docked)) 1,000 mg in 250 mls @ 200 mls/hr IVPB Q24H [facility]; Protocol Last Admin: 10/27/18 12:59 Dose: 200 mls/hr Levofloxacin (Levaquin 500 Mg Premixed Ivpb -) 500 mg in 100 mls @ 100 mls/hr IVPB DAILY [facility]; Protocol Last Admin: 10/28/18 09:03 Dose: 100 mls/hr Lactobacillus Acidophilus (Bacid -) 1 tab PO DAILY [facility] Last Admin: 10/28/18 09:04 Dose: 1 tab - Objective Vital Signs: Vital Signs Temperature 98.3 F 10/28/18 06:00 Pulse Rate 63 10/28/18 06:00 Respiratory Rate 20 10/28/18 06:00 Blood Pressure 114/63 10/28/18 06:00 O2 Sat by Pulse Oximetry (%) 99 10/27/18 20:44 Extremities: Yes: Other (+improved cellulitis b/l feet, -om left MRI awaiting right foot MRI result, -drainage,) Labs: CBC, BMP 10/28/18 06:00 10/28/18 06:00 Assessment/Plan cellulitis b/l feet improved r/o om right foot no om left IVABX as per ID. Santyl to wounds bilateral feet. Read and appreciated vascular consult. Will follow. DC to home with abx as per ID if no OM right. Discussed HBO if infection of bone right. Spoke with daughter Haylie yesterday about her care and progress yesteday.
[2018-10-28] MEDS: VANCOMYCIN 1 GRAM (PRE-DOCKED) 1,000 MG/250 ML BAG IVPB SCH (10:59)
[2018-10-28] MEDS: COLLAGENASE CLOSTRIDIUM HIST. 30 GRAMS TUBE TP SCH (11:00)
[2018-10-28 12:13] LABS: ANISOCYTOSIS 0; MACROCYTOSIS 0; PLATELET ESTIMATE NORMAL
--- NOTE | 2018-10-28 12:50 | PN ---
Progress Note (short form) - Note Progress Note: no complaints Vital Signs Period Temp Pulse Resp BP Sys/Field Pulse Ox Last 24 Hr 97.4 F-98.4 F 63-87 20-20 110-134/50-74 96-99 feet still some erythema of the right foot, ulcer is shallow and dry along the medial aspect of the big toe CBC, BMP 10/28/18 06:00 10/28/18 06:00 Microbiology 10/25/18 12:25 Blood - Peripheral Venous Blood Culture - Preliminary NO GROWTH OBTAINED AFTER 72 HOURS, INCUBATION TO CONTINUE FOR 2 DAYS. 10/25/18 12:25 Blood - Peripheral Venous Blood Culture - Preliminary NO GROWTH OBTAINED AFTER 72 HOURS, INCUBATION TO CONTINUE FOR 2 DAYS. mri left foot no osteo mri right foot- no osteo, no abscess a/p bilateral cellulitis pen allergy (major) continue vancomycin and levaquin hoopefully po antibiotics in am Problem List - Problems (1) Cellulitis Code(s): L03.90 - CELLULITIS, UNSPECIFIED Qualifiers: Site of cellulitis of extremity: lower extremity Laterality: right (2) Penicillin allergy Code(s): Z88.0 - ALLERGY STATUS TO PENICILLIN
--- NOTE | 2018-10-28 15:03 | PN ---
Progress Note, Physician Chief Complaint: Ms Thompson is doing well and without complaint. Denies cp, sob, n/v. - Current Medication List Current Medications: Active Medications Acetaminophen (Tylenol -) 650 mg PO Q4H PRN PRN Reason: FEVER Atorvastatin Calcium (Lipitor -) 10 mg PO Q72H [facility] Last Admin: 10/25/18 22:44 Dose: Not Given Collagenase (Santyl -) 1 applic TP DAILY [facility]; Protocol Last Admin: 10/28/18 11:00 Dose: 1 applic Enoxaparin Sodium (Lovenox -) 40 mg SQ DAILY [facility] Last Admin: 10/28/18 09:08 Dose: Not Given Levofloxacin (Levaquin 500 Mg Premixed Ivpb -) 500 mg in 100 mls @ 100 mls/hr IVPB DAILY [facility]; Protocol Last Admin: 10/28/18 09:03 Dose: 100 mls/hr Vancomycin HCl 1,250 mg/ (Dextrose) 250 mls @ 166.667 mls/hr IVPB Q24H [facility]; Protocol Lactobacillus Acidophilus (Bacid -) 1 tab PO DAILY [facility] Last Admin: 10/28/18 09:04 Dose: 1 tab - Objective Vital Signs: Vital Signs Temperature 36.9 C 10/28/18 10:00 Pulse Rate 82 10/28/18 10:00 Respiratory Rate 20 10/28/18 10:00 Blood Pressure 110/63 10/28/18 10:00 O2 Sat by Pulse Oximetry (%) 96 10/28/18 09:00 Constitutional: Yes: Well Nourished, No Distress, Calm Cardiovascular: Yes: Regular Rate and Rhythm. No: Gallop, Murmur, Rub Respiratory: Yes: Regular, CTA Bilaterally. No: Rales, Rhonchi, Wheezes Gastrointestinal: Yes: Normal Bowel Sounds, Soft. No: Distention, Tenderness Extremities: Yes: Other (wrapped) Edema: No Labs: CBC, BMP 10/28/18 06:00 10/28/18 06:00 Problem List - Problems (1) Cellulitis Code(s): L03.90 - CELLULITIS, UNSPECIFIED Qualifiers: Site of cellulitis of extremity: lower extremity Laterality: right (2) HLD (hyperlipidemia) Code(s): E78.5 - HYPERLIPIDEMIA, UNSPECIFIED Assessment/Plan (1) Cellulitis Assessment/Plan: -case d/w Dr Ramirez -continue vancomycin and levaquin -improving -MRI negative for osteomyelitis -possible discharge tomorrow Code(s): L03.90 - CELLULITIS, UNSPECIFIED Qualifiers: Site of cellulitis of extremity: lower extremity Laterality: right (2) HLD (hyperlipidemia) Assessment/Plan: -continue atorvastatin 10mg three times a week Code(s): E78.5 - HYPERLIPIDEMIA, UNSPECIFIED
--- NOTE | 2018-10-28 15:37 | EKG ---
Test Reason : Blood Pressure : / mmHG Vent. Rate : 086 BPM Atrial Rate : 086 BPM P-R Int : 154 ms QRS Dur : 070 ms QT Int : 370 ms P-R-T Axes : 051 010 018 degrees QTc Int : 442 ms POOR DATA QUALITY, INTERPRETATION MAY BE ADVERSELY AFFECTED NORMAL SINUS RHYTHM NORMAL ECG NO PREVIOUS ECGS AVAILABLE Confirmed by GIOVANNI GARCIA MD ([id number]) on 10/28/2018 3:37:31 PM Referred By: Confirmed By:GIOVANNI GARCIA MD
[2018-10-28] MEDS: ATORVASTATIN CA 10 MG TABLET (FP) PO SCH (21:21)
[2018-10-29 07:09] VITALS: TEMP 98.3
[2018-10-29 07:31] LABS: BASO % 1.9 % (0-2.0); EOS % 3.5 % (0-4.5); HEMATOCRIT 40.5 % (32.4-45.2); HEMOGLOBIN 13.5 GM/dL (10.7-15.3); LYMPH % 20.1 % (8-40); MCH 28.7 pg (25.7-33.7); MCHC 33.2 g/dl (32.0-36.0); MEAN CELL VOLUME 86.6 fl (80-96); MEAN PLT VOLUME 8.1 fl (7.5-11.1); MONO % 6.9 % (3.8-10.2); NEUT % 67.6 % (42.8-82.8); PLATELET COUNT 316 K/MM3 (134-434); RBC 4.68 M/mm3 (3.60-5.2); RDW 14.4 % (11.6-15.6); WHITE BLOOD COUNT 8.5 K/mm3 (4.0-10.0)
[2018-10-29 07:59] LABS: CREATININE 0.7 mg/dL (0.55-1.3); MAGNESIUM 2.6 mg/dL (1.8-2.4); PHOSPHOROUS 3.5 mg/dL (2.5-4.9); POTASSIUM 4.5 mmol/L (3.5-5.1)
[2018-10-29] MEDS ORDERED: VANCOMYCIN HCL 1,250 MG in DEXTROSE 5%-WATER - 250 ML IVPB SCH (10:00)
[2018-10-29] MEDS: ENOXAPARIN NA (PORCINE) 40 MG/0.4 ML DISP.SYRIN SQ SCH (10:14)
[2018-10-29] MEDS: LACTOBACILLUS ACIDOPHILUS 1 TABLET PO SCH (10:15)
[2018-10-29] MEDS: COLLAGENASE CLOSTRIDIUM HIST. 30 GRAMS TUBE TP SCH (10:26)
[2018-10-29 11:10] LABS: ANISOCYTOSIS 0; MACROCYTOSIS 0; PLATELET ESTIMATE NORMAL
--- NOTE | 2018-10-29 13:13 | PN ---
Progress Note (short form) - Note Progress Note: Pt going home. +improved cellulitis and wounds b/l no om on mri b/l cellulitis resolving post op shoe right abx as per id. follow up on wcc. santyl to wounds.
--- NOTE | 2018-10-29 13:20 | PN ---
Progress Note (short form) - Note Progress Note: feels well Vital Signs Period Temp Pulse Resp BP Sys/Field Pulse Ox Last 24 Hr 97.2 F-98.3 F 77-86 20-20 105-137/67-79 99 minimal erythema of the foot, still a shallow ulcer with calllus right first MT head- dry left heel dry fifth toe right foot dry CBC, BMP 10/29/18 06:40 10/29/18 06:40 Microbiology 10/25/18 12:25 Blood - Peripheral Venous Blood Culture - Preliminary NO GROWTH OBTAINED AFTER 96 HOURS, INCUBATION TO CONTINUE FOR 1 DAYS. 10/25/18 12:25 Blood - Peripheral Venous Blood Culture - Preliminary NO GROWTH OBTAINED AFTER 96 HOURS, INCUBATION TO CONTINUE FOR 1 DAYS. mri left foot no osteo mri right foot- no osteo, no abscess a/p bilateral cellulitis pen allergy (major) po bactrim 1 ds po bid for one week f/u wound care stay out of the [facility] wound care per podiatry Problem List - Problems (1) Cellulitis Code(s): L03.90 - CELLULITIS, UNSPECIFIED Qualifiers: Site of cellulitis of extremity: lower extremity Laterality: right (2) Penicillin allergy Code(s): Z88.0 - ALLERGY STATUS TO PENICILLIN
[2018-10-29 14:15] VITALS: BP 142/79; PULSE 104
--- NOTE | 2018-10-29 17:28 | DS ---
Physical Examination Vital Signs: Vital Signs Temperature 36.8 C 10/29/18 04:00 Pulse Rate 104 H 10/29/18 14:14 Respiratory Rate 20 10/29/18 14:14 Blood Pressure 142/79 10/29/18 14:14 O2 Sat by Pulse Oximetry (%) 99 10/29/18 09:00 Constitutional: Yes: Well Nourished, No Distress, Calm Cardiovascular: Yes: Regular Rate and Rhythm. No: Gallop, Murmur, Rub Respiratory: Yes: Regular, CTA Bilaterally. No: Rales, Rhonchi, Wheezes Gastrointestinal: Yes: Normal Bowel Sounds, Soft. No: Distention, Tenderness Extremities: Yes: WNL Edema: No Labs: CBC, BMP 10/29/18 06:40 10/29/18 06:40 Discharge Summary Reason For Visit: CELLULITIS Current Active Problems Cellulitis (Acute) HLD (hyperlipidemia) (Acute) Penicillin allergy (Acute) Hospital Course: (1) Cellulitis Code(s): L03.90 - CELLULITIS, UNSPECIFIED Qualifiers: Site of cellulitis of extremity: lower extremity Laterality: right (2) HLD (hyperlipidemia) Code(s): E78.5 - HYPERLIPIDEMIA, UNSPECIFIED Ms Thompson is a very pleasant 83 year old female who came in with cellulitis and heel ulcers. She failed outpatient clindamycin and was sent in. She was seen by podiatry and ID. She was started on vancomycin and levaquin, patient has a penicillin allergy. She improved significantly. An MRI was performed and did not show osteomyelitis. She improved significantly and case was discussed with Dr Ramirez. She is safe to discharge on 1 week bactrim. Patient to have close follow up with Dr Hanna and Dr Godfrey. 35 minutes spent in preparation of this discharge Condition: Stable - Instructions Diet, Activity, Other Instructions: No bathing or golfing until cleared by Dr Godfrey. Follow up with Dr Hanna in 1 week. Otherwise resume previous diet and activity. Referrals: Vazquez Hanna MD [Staff Physician] - Ghada Godfrey DPM [Staff Physician] - Disposition: HOME - Home Medications Comprehensive Discharge Medication List: Ambulatory Orders Atorvastatin Ca [Lipitor] 10 mg PO Q72H 10/25/18 Collagenase Clostridium Hist. [Santyl -] 1 applic TP DAILY #1 tube 10/29/18 Lactobacillus Acidophilus [Bacid -] 1 tab PO DAILY #14 tab 10/29/18 Sulfamethoxazole/Trimethoprim [Bactrim Ds -] 1 tab PO BID #14 tablet 10/29/18
[2018-10-29] MEDS ORDERED: PT OWN MED DRAWER 7, Y5N ONE (17:36)
== END 2018-10-29 17:32 | disposition home or self-care (01) | DRG 603 ==
LOC: JER 11:27 → JERBED 12:12 → J8W 17:29
PROVIDERS: ADMIT Internal Medicine; ATTEND Internal Medicine
DX: L03.115 Cellulitis of right lower limb (principal); L97.419 Non-pressure chronic ulcer of right heel and midfoot with unspecified severity; E78.5 Hyperlipidemia, unspecified; Z88.0 Allergy status to penicillin
CPT/HCPCS: 36415; 71045-TC-FY; 73630-TC-LT; 73630-TC-RT-FY; 73718-TC-LT; 73721-RT-TC; 80048; 80053; 83735; 84100; 85025; 85651; 86140; 87040; 93005; 93010; 93970-TC; 99282-25; G0463-25; G0480